=== PATIENT | male | born 1995 | race Caucasian/White ===

== ENCOUNTER 2023-11-10 18:14 | Emergency (ER) | payer MEDICAID, SELFPAY ==
[2023-11-10 18:18] VITALS: BP 157/94; PULSE 88; RESP 20; TEMP 36.9; O2SAT 98
[2023-11-10] MEDS: Tetracaine 0.5% 4 ML BTL (18:32)
[2023-11-10] MEDS: Fluorescein STRIPS 100/BOX 1 MG OP (18:33)
--- NOTE | 2023-11-10 18:54 | ED.GENADUL_ITS ---
Discharge Plan Disposition Patient Disposition: Home Condition: Stable Discharge Details Clinical Impression: Corneal abrasion, Conjunctivitis Primary Care Provider: None,None ED Provider: Lisa Nash Home Meds and New Rx's Prescriptions: New erythromycin 5 mg/gram (0.5 %) ointment 1 applic ophthalmic (eye) QID 5 Days Qty: 3.5 0RF Discharge Instructions Instructions: How to Use Eye Ointment, Corneal Abrasion ED Additional Instructions: I encourage you to follow[facility] with [facility] ([phone]) on Monday if your eye is not feeling significantly improved. Use the erythromycin ointment 4 times a day as prescribed. Please do not touch your eye. If you have touch your eye please wash your hands first, then wash your hands immediately afterwards. Cool compresses may also be helpful for discomfort. Return to emergency care if you develop worsening eye pain despite treatment, vision change, severe headache, uncontrolled vomiting, significant swelling around your eye, or if you are very worried and need to be rechecked again immediately HPI General Date/Time Provider Initiated Documentation: 11/10/23 18:21 . HPI Narrative: Toni is a 28-year-old male who presents to the emergency department today for evaluation of right eye irritation. He reports that for the last 4 days he has been waking up in the morning with crusting in his eye. Approximately an hour and a half prior to arrival he was working on a construction project when he felt like something got in his eye. He rubbed it with his dirty hands. He was unable to see anything in his eye, but has had persistent irritation and redness to his eye. He does have discomfort when he looks laterally with that eye. No vision changes, headache, nausea/vomiting, other injuries. He does not wear contacts. No significant past medical history. Physical exam remarkable for significant conjunctival erythema with greenish- yellow drainage noted at the medial canthus. Mild swelling noted to the sclera around the 9 o'clock position. Fluorescein stain significant for approximately 0.75 cm irregularly shaped area of fluorescein uptake consistent with corneal abrasion. No foreign bodies noted under the upper or lower eyelid. pH 7.5. Visual acuity unchanged. No change to surrounding eye structures. PERRL, EOMs intact. History and presentation consistent with corneal abrasion. Likely conjunctivitis as well, based on patient history and drainage. Will treat with erythromycin ointment that we will address both issues. Educated on importance of good handwashing and follow-up with eye doctor as needed. Reviewed red flags indicating need for return to emergency care. He is agreeable with plan of care. Related Data Home Medications Medication Instructions Recorded Confirmed erythromycin 5 mg/gram (0.5 %) eye 1 applic ophthalmic (eye) QID 5 11/10/23 ointment days #3.5 grams Previous Rx's Medication Instructions Recorded erythromycin 5 mg/gram (0.5 %) eye 1 applic ophthalmic (eye) QID 5 11/10/23 ointment days #3.5 grams Allergies Allergy/AdvReac Type Severity Reaction Status Date / Time No Known Allergies Allergy Unverified 11/10/23 18:23 General Stated Complaint: EyeProblem LEELA: 4 Review of Systems Narrative: see HPI Exam Const General: cooperative, healthy appearing, comfortable and no acute distress Eyes Eyelids: eyelids normal Conjunctivae: conjunctival abnormality right conjunctival injection, discharge and other (mild area of swelling at 9 o clock position) and other Cornea: fluorescein used (0.5 cm diameter irregularly shaped area of fluorescein uptake consistent wi) Pupils: PERRL EOM: EOM intact bilaterally Eyes/upper lids images: 2 1. area of fluorescein uptake Course Vital Signs Vital signs: Vital Signs Temperature 36.9 C 11/10/23 18:18 Pulse 88 11/10/23 18:18 Respiratory Rate 20 11/10/23 18:18 Blood Pressure 157/94 H 11/10/23 18:18 Pulse Oximetry 98 11/10/23 18:18 Temperature 36.9 C 11/10/23 18:18 Temperature Source Temporal Artery Scan 11/10/23 18:18 Pulse 88 11/10/23 18:18 Respiratory Rate 20 11/10/23 18:18 Respiratory Effort Normal, Non-Labored 11/10/23 18:23 Blood Pressure 157/94 H 11/10/23 18:18 Blood Pressure Position Sitting 11/10/23 18:18 Pulse Oximetry 98 11/10/23 18:18 Oxygen Delivery Method Room Air 11/10/23 18:18 Oxygen Flow Rate 0 11/10/23 18:18 Pain Level 3 11/10/23 18:18 Medical Decision Making Quality:SDOH Health Related Social Needs: 2 No Data to Display PFSH All Active Problems (Updated 11/10/23 @ 18:50 by Lisa Agrawal) Conjunctivitis (Acute) Corneal abrasion (Acute) Social History Smoking/Tobacco Use Status: Never Smoking risk assessment performed?: Yes Alcohol Intake: never Drug use: Daily Substance use type: marijuana
[2023-11-10] MEDS: Erythromycin Ophth Oint 3.5 GM TUBE OS (18:55)
== END 2023-11-10 19:05 | disposition home or self-care (01) ==
LOC: ER 19:05
PROVIDERS: Emergency Provider Nurse Practitioner Family
DX: S05.01XA Injury of conjunctiva and corneal abrasion without foreign body, right eye, initial encounter (principal); H10.9 Unspecified conjunctivitis
CPT/HCPCS: 99283

== ENCOUNTER 2023-12-01 17:02 | Emergency (ER) | payer MEDICAID, SELFPAY ==
[2023-12-01 17:07] VITALS: BP 155/97; PULSE 69; RESP 18; TEMP 36.4; O2SAT 98
--- NOTE | 2023-12-01 19:18 | ED.GENADUL_ITS ---
Discharge Plan Disposition Patient Disposition: Home Condition: Stable Discharge Details Clinical Impression: Pain, dental Primary Care Provider: None,None ED Provider: Guzman Calderon Home Meds and New Rx's Prescriptions: New amoxicillin-pot clavulanate 875-125 mg tablet 1 tab PO BID Qty: 14 0RF Discharge Instructions Additional Instructions: You can take 1000 mg of acetaminophen and 600 mg of ibuprofen every 6 hours as needed Follow-up with your dentist as soon as you can If you feel more ill or have new symptoms such as high fevers or inability to swallow liquids return to the emergency department for reevaluation HPI General Mode of arrival: ambulatory . Date/Time Provider Initiated Documentation: 12/01/23 19:12 . Limitations to Documentation: no limitations . Information obtained by: patient . History of Present Illness 28 year old M presents to the emergency department with the chief complaint of left lower tooth pain, described as moderate, Quality is described as aching, Patient reports no radiation. Patient started experiencing this day(s) (2) and it has been constant. No relieving factors improve symptom(s), No exacerbating factors reported . Patient notes no other symptoms.. Related Data Home Medications ?Medication ?Instructions ?Recorded ?Confirmed amoxicillin 875 mg-potassium 1 tab PO BID #14 tabs 12/01/23 clavulanate 125 mg tablet Previous Rx's ?Medication ?Instructions ?Recorded amoxicillin 875 mg-potassium 1 tab PO BID #14 tabs 12/01/23 clavulanate 125 mg tablet Allergies Allergy/AdvReac Type Severity Reaction Status Date / Time No Known Allergies Allergy Unverified 11/10/23 18:23 General Stated Complaint: DentalOral LEELA: 4 Review of Systems All systems reviewed & are unremarkable except as noted in HPI and below Constitutional Constitutional: Denies chills, Denies fever(s) and Denies weakness Cardiovascular Cardiovascular: Denies chest pain and Denies dyspnea Respiratory Respiratory: Denies cough and Denies dyspnea Gastrointestinal Gastrointestinal: Denies vomiting Musculoskeletal Musculoskeletal: Denies joint swelling Neurologic Neurologic: Denies weakness Exam Const General: no acute distress Orientation: alert HENMT Head: normal to inspection Ears: external ears normal General nose exam: external nose normal Mouth: moist mucous membranes Eyes General: appearance normal, both eyes and all related structures Neck Neck: normal visual inspection Resp Effort & Inspection: normal respiratory effort and able to speak in complete sentences Cardio Rate: regular rate Skin General skin exam: no rashes or lesions noted Neuro General: patient alert and patient oriented x3 Extrem General: normal to inspection Psych Mental Status: mental status grossly normal Course Vital Signs Vital signs: Vital Signs Temperature 36.4 C L 12/01/23 17:07 Pulse 69 12/01/23 17:07 Respiratory Rate 18 12/01/23 17:07 Blood Pressure 155/97 H 12/01/23 17:07 Pulse Oximetry 98 12/01/23 17:07 Temperature 36.4 C L 12/01/23 17:07 Temperature Source Temporal Artery Scan 12/01/23 17:07 Pulse 69 12/01/23 17:07 Respiratory Rate 18 12/01/23 17:07 Blood Pressure 155/97 H 12/01/23 17:07 Pulse Oximetry 98 12/01/23 17:07 Oxygen Delivery Method Room Air 12/01/23 17:07 Oxygen Flow Rate 0 12/01/23 17:07 Medical Decision Making 28-year-old male who denies any significant past medical history comes in with 2 days of left lower mid molar pain. He says several months ago the molar broke off and has not seen a dentist since then. He has not had any fevers, no neck or submandibular swelling, breathing and swallowing normally. He appears well in no distress on exam speaking clearly swallowing normally. He has a normal posterior pharynx with midline uvula, his left lower mid molar has been eroded down to the gum, there is mild swelling of the gum as well no visible abscess that can be drained. He has no submandibular swelling, no pain over the hyoid, no restricted neck movements, no findings on exam to suggest serious entities such as [place]igs. Suspect dental infection we will start him on Augmentin and advised to follow-up with his dentist as soon as possible and return precautions given Differential Diagnosis Differential Diagnosis: Pulpitis, dental abscess Quality:SDOH Health Related Social Needs: No Data to Display PFSH All Active Problems (Updated 12/01/23 @ 19:22 by Guzman Calderon MD) Pain, dental (Acute) Conjunctivitis (Acute) Corneal abrasion (Acute) Social History Smoking/Tobacco Use Status: Never Smoking risk assessment performed?: Yes Alcohol Intake: never Drug use: Daily Substance use type: marijuana
[2023-12-01] MEDS: Amoxicillin 875/Clav. 125 TAB PO (19:23)
[2023-12-01 19:26] VITALS: BP 155/97; PULSE 69; RESP 18; TEMP 36.4; O2SAT 98
== END 2023-12-01 19:30 | disposition home or self-care (01) ==
PROVIDERS: Emergency Provider Emergency Medicine
DX: K08.89 Other specified disorders of teeth and supporting structures (principal)
CPT/HCPCS: 99283